=== PATIENT | female | born 2000 | race Asian ===

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

== ENCOUNTER 2020-02-02 02:47 | Emergency (ER) | payer OTHER ==
[~2020-02-02] VITALS: Ht 162.6 cm; Wt 63.0 kg
[~2020-02-02 02:47] MED LIST: AMOX1TAB16 PO
[2020-02-02 03:17] VITALS: BP 126/61
== END 2020-02-02 03:35 | disposition home or self-care (01) ==
LOC: EMS 02:48
DX: H60.92 Unspecified otitis externa, left ear (principal)
CPT/HCPCS: 99283; Z7502